=== PATIENT | female | born 1950 | race Caucasian/White ===

== ENCOUNTER 2016-11-25 07:03 | Day surgery (SDC) | payer MEDICARE, BC ==
[~2016-11-25 07:03] MED LIST: ASPIRIN EC81 MG PO; EFFEXOR XR150 M1 PO; LISINOPRIL10 MG PO; LORTAB 5/500 TA1 TAB PO; MULTIVITAMIN1 TAB PO; SIMVASTATIN20 MG PO
[2016-11-25] MEDS ORDERED: magnesium PO (07:20)
[2016-11-25] MEDS ORDERED: VITAMIN B1 (07:21)
[2016-11-25] MEDS ORDERED: VITAMIN D35000 UNI2 PO (07:21)
[2016-11-25] MEDS ORDERED: VITAMIN E400 UNI4 (07:21)
[2016-11-25] MEDS ORDERED: TYLENOL325 M2 PO (07:22)
[2016-11-25] MEDS ORDERED: STOOL SOFTENER100 M2 PO (07:22)
[2016-11-25] MEDS ORDERED: MELATONIN10 M6 PO (07:22)
[2016-11-25] MEDS ORDERED: MOBIC15 M2 PO (09:58)
[2016-11-25] MEDS ORDERED: OXYCODONE HCL5 M1 PO (10:00)
[2016-11-25] MEDS ORDERED: ULTRAM50 M1 PO (10:02)
[2016-11-25] MEDS ORDERED: ALEVE220 M3 PO (10:22)
[2016-11-25] MEDS ORDERED: [UNRECOGNIZED DRUG - OTHER] PO (10:43)
[2016-11-25 11:33] LABS: BASO % 0.3 % (0-2); EOS % 2.3 % (0-7); EOSINOPHIL ABSOLUTE COUNT 0.2 tho/cmm (0.0-0.7); HGB-HEMOGLOBIN 12.5 gm/dl (12.0-15.5); IMMATURE GRANULOCYTES ABSOLUTE 0.02 tho/cmm (0-0.03); IMMATURE GRANULOCYTES PERCENT 0.2 % (0-0.3); LYMPH % 18.3 % (20-45); LYMPH ABSOLUTE COUNT 1.7 tho/cmm (0.8-4.5); MCH (MEAN CORPUSCULAR HGB) 30.2 pg (28.0-32.0); MCHC MEAN CORPUSCULAR HGB CONC 32.1 % (32.0-36.0); MCV (MEAN CELL VOLUME) 94.2 fl (82.0-96.0); MEAN PLATELET VOLUME 9.7 cmc (9.4-12.4); MONO % 6.8 % (0-12); MONOCYTE ABSOLUTE COUNT 0.6 tho/cmm (0.0-1.2); NEUTROPHIL ABSOLUTE COUNT 6.5 tho/cmm (1.6-8.0); NEUTROPHIL-AUTOMATED 6.5 tho/cmm (1.6-8.0); NEUTROPHILS % 72.1 % (40-80); PLATELET COUNT 305 tho/cmm (150-450); RED BLOOD COUNT 4.14 mil/cmm (4.00-5.20); RED CELL DISTRIBUTION WIDTH 13.5 % (12.4-16.4); WHITE BLOOD COUNT 9.1 tho/cmm (4.0-10.0)
[2016-11-25 11:48] LABS: ANION GAP 12 mmol/L (0-20); BLOOD UREA NITROGEN 15 mg/dl (6-24); CALCIUM 8.5 mg/dl (8.5-10.5); CARBON DIOXIDE-VENOUS 28 mmol/L (22-32); CHLORIDE 107 mmol/l (96-110); CREATININE 0.91 mg/dl (0.50-1.10); GLUCOSE 106 mg/dL (70-110); POTASSIUM 3.8 mmol/L (3.7-5.1); SODIUM 143 mmol/L (135-145); eGFR VALUE FOR BLACK 75 mL/Min
[2016-11-26 06:00] LABS: BASO % 0.1 % (0-2); EOS % 0.4 % (0-7); IMMATURE GRANULOCYTES ABSOLUTE 0.01 tho/cmm (0-0.03); IMMATURE GRANULOCYTES PERCENT 0.1 % (0-0.3); LYMPH ABSOLUTE COUNT 1.8 tho/cmm (0.8-4.5); MCV (MEAN CELL VOLUME) 93.6 fl (82.0-96.0); MEAN PLATELET VOLUME 9.3 cmc (9.4-12.4); MONO % 8.5 % (0-12); MONOCYTE ABSOLUTE COUNT 0.8 tho/cmm (0.0-1.2); NEUTROPHIL ABSOLUTE COUNT 6.7 tho/cmm (1.6-8.0); NEUTROPHIL-AUTOMATED 6.7 tho/cmm (1.6-8.0); NEUTROPHILS % 71.9 % (40-80); PLATELET COUNT 249 tho/cmm (150-450); RED BLOOD COUNT 3.11 mil/cmm (4.00-5.20); RED CELL DISTRIBUTION WIDTH 13.7 % (12.4-16.4); WHITE BLOOD COUNT 9.4 tho/cmm (4.0-10.0)
[2016-11-26 06:01] LABS: HCT-HEMATOCRIT 29.1 % (34.0-49.0); HGB-HEMOGLOBIN 9.3 gm/dl (12.0-15.5); MCH (MEAN CORPUSCULAR HGB) 29.9 pg (28.0-32.0)
[2016-11-26] MEDS ORDERED: ASPIRIN325 M3 PO (10:55)
[2016-11-26] MEDS ORDERED: ULTRAM50 M1 PO (10:56)
[2016-11-26] MEDS ORDERED: KEFLEX500 M4 PO (10:59)
== END 2016-11-26 12:30 ==
LOC: EDMED 07:03 → EMR2 11:01 → ORE 13:22 → PACU 14:22 → CAR1 15:25
PROVIDERS: Orthopaedic Surgery
PROC: 0JQP0ZZ Repair Left Lower Leg Subcutaneous Tissue and Fascia, Open Approach (ICD-10-PCS; principal; 2016-11-25)
DX: T81.31XA Disruption of external operation (surgical) wound, not elsewhere classified, initial encounter (principal); M17.12 Unilateral primary osteoarthritis, left knee; I10 Essential (primary) hypertension; E66.9 Obesity, unspecified; Z96.652 Presence of left artificial knee joint; Z90.49 Acquired absence of other specified parts of digestive tract; Z90.710 Acquired absence of both cervix and uterus; Z87.891 Personal history of nicotine dependence
CPT/HCPCS: G8978-GP-CH; G8979-GP-CH; G8980-GP-CH; G8987-GO-CI; G8988-GO-CI; G8989-GO-CI; J0690; J3010; J3370; J7030